=== PATIENT | female | born 1945 | race Caucasian/White ===

== ENCOUNTER 2017-07-16 12:30 | Day surgery (SDC) | payer MEDICARE ==
[2017-07-16] MEDS ORDERED: TRIAMCINOLONE ACETONIDE 40 MG/ML SUS ONE (13:29)
[2017-07-16] MEDS ORDERED: BUPIVACAINE HCL 0.5% MPF 10 ML SOL ONE (13:29)
[2017-07-16 13:54] VITALS: BP 128/60; PULSE 71; RESP 20; TEMP 98; O2SAT 96
== END 2017-07-16 14:15 | disposition home or self-care (01) | DRG 552 ==
LOC: SURG 12:30
PROVIDERS: ATTEND Nurse Anesthetist, Certified Registered
DX: M53.3 Sacrococcygeal disorders, not elsewhere classified (principal)
CPT/HCPCS: J3300

== ENCOUNTER 2018-08-04 07:46 | Day surgery (SDC) | payer MEDICARE ==
[2018-08-04] MEDS ORDERED: TRIAMCINOLONE ACETONIDE 40 MG/ML SUS ONE (08:28)
[2018-08-04] MEDS ORDERED: BUPIVACAINE HCL 0.25% MPF 30 ML SOL INFIL ONE (08:29)
[2018-08-04 09:06] VITALS: RESP 20; TEMP 98
[2018-08-04] MEDS ORDERED: KETOROLAC TROMETHAMINE 30 MG/ML SOL ONE (13:11)
[2018-08-04] MEDS ORDERED: SODIUM CHLORIDE 0.9% FLUSH 10 ML SOL IV ONE (13:25)
[2018-08-04 13:53] VITALS: BP 126/69; PULSE 66; O2SAT 97
== END 2018-08-04 16:15 | disposition home or self-care (01) | DRG 554 ==
LOC: SURG 07:46
PROVIDERS: ATTEND Nurse Anesthetist, Certified Registered
DX: M12.9 Arthropathy, unspecified (principal); E11.9 Type 2 diabetes mellitus without complications
CPT/HCPCS: 73501; 82962; J1885; J3300

== ENCOUNTER 2018-10-20 07:52 | Day surgery (SDC) | payer MEDICARE ==
[2018-10-20 08:27] VITALS: RESP 16
[2018-10-20] MEDS ORDERED: BUPIVACAINE HCL 0.25% MPF 30 ML SOL INFIL ONE (08:53)
[2018-10-20] MEDS: TRIAMCINOLONE ACETONIDE 40 MG/ML SUS ONE ×2 (08:58→09:03)
[2018-10-20 09:44] VITALS: BP 144/78; PULSE 61; TEMP 97.7; O2SAT 98
== END 2018-10-20 09:38 | disposition home or self-care (01) | DRG 554 ==
LOC: SURG 07:52
PROVIDERS: ATTEND Nurse Anesthetist, Certified Registered
DX: M12.9 Arthropathy, unspecified (principal); E11.9 Type 2 diabetes mellitus without complications
CPT/HCPCS: J3300